=== PATIENT | male | born 1950 | race African-American/Black ===

== ENCOUNTER 2018-06-13 12:40 | Inpatient (IN) | payer MEDICARE, OTHER ==
--- NOTE | 2018-06-13 14:24 | ER Document Report ---
ED Medical Screen (RME) - General Chief Complaint: Breathing Difficulty Stated Complaint: DIFFICULTY BREATHING Time Seen by Provider: 06/13/18 14:17 - HPI Notes: 06/13/18 14:21 Patient is a 68-year-old male with a past medical history of congestive heart failure, legally blind, hypertension, and chronic kidney disease who presents to the ED complaining of 2 days of intermittent dyspnea that is worse with lying supine. Last episode of dyspnea was last night/early this morning. Denies any headache, fever, URI, sore throat, chest pain, palpitations, syncope , cough, wheeze, abdominal pain, nausea/vomiting/diarrhea, urinary retention, dysuria, hematuria, loss of control of bowel or bladder, numbness/tingling, saddle anesthesia, muscle paralysis/weakness, or rash. I have treated and performed a rapid initial assessment of this patient. A comprehensive ED assessment and evaluation of the patient, analysis of test results and completion of medical decision making process will be conducted by additional ED providers. PHYSICAL EXAMINATION: GENERAL: Well-appearing, well-nourished and in no acute distress. A&Ox4. Answers questions appropriately. LUNGS: Breath sounds clear to auscultation bilaterally and equal. No wheezes rales or rhonchi. HEART: Regular rate and rhythm without murmurs, rubs, gallops. Extremities: No cyanosis, clubbing, or edema b/l. - Related Data Allergies/Adverse Reactions: No Known Allergies Allergy (Verified 06/13/18 12:41) Past Medical History - Social History Chew tobacco use (# tins/day): No Frequency of alcohol use: Occasional Drug Abuse: Marijuana - Past Medical History Cardiac Medical History: Reports: Hx Congestive Heart Failure, Hx Hypercholesterolemia, Hx Hypertension Denies: Hx Atrial Fibrillation, Hx Coronary Artery Disease, Hx Heart Attack, Hx Peripheral Vascular Disease, Hx Pulmonary Embolism, Hx Heart Murmur Pulmonary Medical History: Reports: Hx Pneumonia Denies: Hx Asthma, Hx Bronchitis, Hx COPD, Hx Respiratory Failure, Hx Sleep Apnea, Hx Tuberculosis Renal/ Medical History: Denies: Hx Peritoneal Dialysis Malignancy Medical History: Denies Hx Lung Cancer GI Medical History: Reports: Hx Gastroesophageal Reflux Disease Musculoskeltal Medical History: Reports Hx Arthritis Past Surgical History: Reports: Hx Bowel Surgery - laparoscopic repair d/t perforation, Hx Cardiac Catheterization - 2010, Hx Open Heart Surgery - 1998 mitral valve repair, Hx Pacemaker. Denies: Hx Appendectomy, Hx Cholecystectomy , Hx Coronary Artery Bypass Graft, Hx Gastric Bypass Surgery, Hx Herniorrhaphy, Hx Tonsillectomy - Immunizations Hx Diphtheria, Pertussis, Tetanus Vaccination: No Physical Exam - Vital signs Vitals: Temp Pulse Resp BP Pulse Ox 97.9 F 83 16 152/86 H 99 06/13/18 12:58 06/13/18 12:58 06/13/18 12:58 06/13/18 12:58 06/13/18 12:58 Course - Vital Signs Vital signs: Temp Pulse Resp BP Pulse Ox 97.9 F 83 16 152/86 H 99 06/13/18 12:58 06/13/18 12:58 06/13/18 12:58 06/13/18 12:58 06/13/18 12:58 Doctor's Discharge - Discharge Referrals: PATRICIA RIOS MD [Primary Care Provider] - Follow up as needed
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
[2018-06-13 16:09] LABS: ABSOLUTE BASOPHILS # (AUTO) 0.1 10^3/uL (0.0-0.2); ABSOLUTE LYMPHOCYTES (AUTO) 1.7 10^3/uL (0.5-4.7); ABSOLUTE MONOCYTES (AUTO) 0.6 10^3/uL (0.1-1.4); ABSOLUTE NEUT (AUTO) 3.7 10^3/uL (1.7-8.2); EOSINOPHILS % (AUTO) 0.1 % (0-6); HEMATOCRIT 43.3 % (37.9-51.0); HEMOGLOBIN 14.1 g/dL (13.5-17.0); LYMPHOCYTES % (AUTO) 28.1 % (13-45); MEAN CORPUSCULAR HEMOGLOBIN 29.5 pg (27.0-33.4); MEAN CORPUSCULAR HGB CONC 32.6 g/dL (32.0-36.0); MEAN CORPUSCULAR VOLUME 91 fl (80-97); MONOCYTES % (AUTO) 9.6 % (3-13); PLATELET COUNT 171 10^3/uL (150-450); RED BLOOD COUNT 4.79 10^6/uL (4.35-5.55); RED CELL DISTRIBUTION WIDTH 15.1 % (11.5-14.0); SEGMENTED NEUTROPHILS % (AUTO) 61.2 % (42-78); TOTAL CELLS COUNTED % (AUTO) 100 %
--- NOTE | 2018-06-13 16:46 | ER Document Report ---
ED General - General Chief Complaint: Breathing Difficulty Stated Complaint: DIFFICULTY BREATHING Time Seen by Provider: 06/13/18 14:17 - HPI Notes: 68-year-old male with a history of congestive heart failure, mitral valve surgery, pacemaker/AICD, chronic kidney disease presents with increasing shortness of breath over the past 2 days. It is worse when he lays flat. No change with exertion. Denies any chest pain, cough, fever. He was taken off of Lasix and Coumadin about 1 month ago by his primary care doctor due to worsening kidney disease and "blood being too thin." He is not followed by cardiology. Denies history of coronary disease or stents. Sats 100%. Denies leg swelling. - Related Data Allergies/Adverse Reactions: No Known Allergies Allergy (Verified 06/13/18 14:23) Past Medical History - Social History Smoking Status: Current Every Day Smoker Chew tobacco use (# tins/day): No Frequency of alcohol use: Occasional Drug Abuse: Marijuana Family History: Reviewed & Not Pertinent Patient has suicidal ideation: No Patient has homicidal ideation: No - Past Medical History Cardiac Medical History: Reports: Hx Congestive Heart Failure, Hx Hypercholesterolemia, Hx Hypertension Denies: Hx Atrial Fibrillation, Hx Coronary Artery Disease, Hx Heart Attack, Hx Peripheral Vascular Disease, Hx Pulmonary Embolism, Hx Heart Murmur Pulmonary Medical History: Reports: Hx Pneumonia Denies: Hx Asthma, Hx Bronchitis, Hx COPD, Hx Respiratory Failure, Hx Sleep Apnea, Hx Tuberculosis Renal/ Medical History: Denies: Hx Peritoneal Dialysis Malignancy Medical History: Denies Hx Lung Cancer GI Medical History: Reports: Hx Gastroesophageal Reflux Disease Musculoskeletal Medical History: Reports Hx Arthritis Past Surgical History: Reports: Hx Bowel Surgery - laparoscopic repair d/t perforation, Hx Cardiac Catheterization - 2010, Hx Cardiac Surgery - valve replacement, Hx Open Heart Surgery - 1998 mitral valve repair, Hx Pacemaker. Denies: Hx Appendectomy, Hx Cholecystectomy, Hx Coronary Artery Bypass Graft, Hx Gastric Bypass Surgery, Hx Herniorrhaphy, Hx Tonsillectomy - Immunizations Hx Diphtheria, Pertussis, Tetanus Vaccination: No Hx Pneumococcal Vaccination: 09/11/11 Review of Systems - Review of Systems Notes: Constitutional: Negative for fever. HENT: Negative for sore throat. Eyes: Negative for visual changes. Cardiovascular: Negative for chest pain. Respiratory: Positive for shortness of breath. Gastrointestinal: Negative for abdominal pain, vomiting or diarrhea. Genitourinary: Negative for dysuria. Musculoskeletal: Negative for back pain. Skin: Negative for rash. Neurological: Negative for headaches, weakness or numbness. 10 point ROS negative except as marked above and in HPI. Physical Exam - Vital signs Vitals: Temp Pulse Resp BP Pulse Ox 97.9 F 83 16 152/86 H 99 06/13/18 12:58 06/13/18 12:58 06/13/18 12:58 06/13/18 12:58 06/13/18 12:58 - Notes Notes: PHYSICAL EXAMINATION: GENERAL: Well-appearing, well-nourished and in no acute distress. HEAD: Atraumatic, normocephalic. EYES: Blind both eyes, wearing glasses ENT: nares patent, oropharynx clear without exudates. Moist mucous membranes. NECK: Normal range of motion, supple without lymphadenopathy LUNGS: Breath sounds clear to auscultation bilaterally. No wheezes rales or rhonchi. Diminished breath sounds left lung base HEART: Regular rate and rhythm, no chest wall tenderness ABDOMEN: Soft, nontender, normoactive bowel sounds. No guarding, no rebound. No masses appreciated. EXTREMITIES: Normal range of motion, no pitting or edema. No cyanosis. NEUROLOGICAL: Cranial nerves grossly intact. Normal speech, normal gait. Normal sensory and motor exams. PSYCH: Normal mood, normal affect. SKIN: Warm, Dry, normal turgor, no rashes or lesions noted. Course - Re-evaluation Re-evalutation: 06/13/18 20:38 Patient required multiple attempts for blood as it continued to be hemolyzed. Eventually, troponin was minimally elevated and BNP was markedly elevated. He has not had a recent echocardiogram and is not followed by cardiology. Suggested admission for echocardiogram and diuresis. Patient agreed. Will discuss with hospitalist. - Vital Signs Vital signs: Temp Pulse Resp BP Pulse Ox 97.9 F 83 21 H 152/107 H 99 06/13/18 12:58 06/13/18 12:58 06/13/18 19:01 06/13/18 19:00 06/13/18 19:01 - Laboratory Result Diagrams: 06/13/18 15:58 06/13/18 17:00 Laboratory results interpreted by me: 06/13/18 06/13/18 06/13/18 15:58 17:00 18:50 RDW 15.1 H Chloride 111 H Carbon Dioxide 20 L BUN 23 H Direct Bilirubin 0.5 H AST 68 H NT-Pro-B Natriuret Pep 5070 H Total Protein 8.7 H Discharge - Discharge Clinical Impression: Elevated troponin CHF exacerbation Qualifiers: Heart failure type: unspecified Qualified Code(s): I50.9 - Heart failure, unspecified Condition: Stable Disposition: ADMITTED INPATIENT Admitting Provider: Hospitalist Unit Admitted: Telemetry Referrals: PATRICIA RIOS MD [Primary Care Provider] - Follow up as needed
[2018-06-13 18:10] LABS: ALANINE AMINOTRANSFERASE 50 U/L (21-72); ALKALINE PHOSPHATASE 99 U/L (38-126); ANION GAP 10 (5-19); ASPARTATE AMINO TRANSFERASE 68 U/L (17-59); BILIRUBIN,DIRECT 0.5 mg/dL (0.0-0.4); BLOOD UREA NITROGEN 23 mg/dL (7-20); CALCIUM 9.5 mg/dL (8.4-10.2); CARBON DIOXIDE 20 mmol/L (22-30); CHLORIDE 111 mmol/L (98-107); GLUCOSE 76 mg/dL (75-110); POTASSIUM 4.3 mmol/L (3.6-5.0); SODIUM 141.4 mmol/L (137-145); TOTAL PROTEIN 8.7 g/dL (6.3-8.2)
[2018-06-13] MEDS ORDERED: FUROSEMIDE 40 MG TABLET PO ONE (18:28)
--- NOTE | 2018-06-13 19:29 | EKG REPORT ---
SEVERITY:- ABNORMAL ECG - ATRIAL-SENSED VENTRICULAR-PACED RHYTHM : Confirmed by: Dez Ziegler MD 13-Jun-2018 19:28:13
[2018-06-13 20:32] LABS: TROPONIN I 0.05 ng/mL
[2018-06-13] MEDS ORDERED: NITROGLYCERIN 0.4 MG/TAB 25 TAB/BOTTLE SL ONE (23:00)
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
--- NOTE | 2018-06-14 07:39 | EKG REPORT ---
SEVERITY:- ABNORMAL ECG - VENTRICULAR-PACED COMPLEXES : Confirmed by: Dez Ziegler MD 14-Jun-2018 07:39:03
[2018-06-14] MEDS ORDERED: SACUBITRIL/VALSARTAN 24 MG/26 MG TABLET PO SCH (10:00)
[2018-06-14] MEDS ORDERED: FUROSEMIDE INJ/PF 40 MG/4 ML SDV IV SCH (10:00)
[2018-06-14] MEDS: POTASSIUM CHLORIDE 10 MEQ CAPSULE.ER PO SCH (11:10)
[2018-06-14] MEDS: FAMOTIDINE 20 MG TABLET PO SCH ×2 (11:10→21:38)
[2018-06-14] MEDS: ASPIRIN 81 MG TABLET, ENT COATED PO SCH (11:10)
[2018-06-14] MEDS: ENOXAPARIN SODIUM INJ 30 MG/0.3 ML DISP.SYRIN SUBCUT SCH (11:10)
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
--- NOTE | 2018-06-15 09:19 | PDOC PROGRESS REPORT ---
Subjective Progress Note for:: 06/15/18 Subjective:: no pain dyspnea Reason For Visit: ACUTE ON CHRONIC CONGESTIVE HEART FAILURE, Physical Exam Vital Signs: Temp Pulse Resp BP Pulse Ox 98.4 F 76 20 117/51 L 100 06/15/18 03:51 06/15/18 03:51 06/15/18 03:51 06/15/18 03:51 06/15/18 03:51 Intake & Output 06/14/18 06/15/18 06/16/18 07:59 07:59 07:59 Intake Total 650 Output Total 500 Balance -500 650 Weight 152 lb 1.903 oz 152 lb 8.958 oz General appearance: PRESENT: no acute distress Respiratory exam: PRESENT: clear to auscultation sidney Cardiovascular exam: ABSENT: diastolic murmur, irregular rhythm, systolic murmur GI/Abdominal exam: ABSENT: mass, organolmegaly, tenderness Extremities exam: ABSENT: pedal edema Neurological exam: PRESENT: oriented to situation Psychiatric exam: PRESENT: appropriate affect Results Laboratory Results: bmp pending Impressions: Chest X-Ray 06/13/18 14:21 IMPRESSION: Small left effusion. There is left basilar airspace disease either atelectasis or pneumonia. Assessment & Plan - Diagnosis (1) Acute on chronic systolic congestive heart failure Is this a current diagnosis for this admission?: Yes Plan: down 5#. Echo report pending. (2) Mixed hyperlipidemia Is this a current diagnosis for this admission?: Yes (3) Ventricular tachycardia Is this a current diagnosis for this admission?: Yes (4) Chronic atrial fibrillation Is this a current diagnosis for this admission?: Yes (5) Old myocardial infarction Is this a current diagnosis for this admission?: Yes - Inpatient Certification Medical Necessity: Failure to Improve With Outpatient Therapy, Significant Comorbidiites Make Outpatient Treatment Too Risky, Need Close Monitoring Due to Risk of Patient Decompensation, Need For Continuous Telemetry Monitoring, Risk of Complication if Not Cared For in Hospital, Risk of Diagnosis Which Will Require Inpatient Eval/Care/Monitoring
[2018-06-15 09:29] LABS: ANION GAP 9 (5-19); BLOOD UREA NITROGEN 20 mg/dL (7-20); CALCIUM 8.8 mg/dL (8.4-10.2); CARBON DIOXIDE 22 mmol/L (22-30); CHLORIDE 108 mmol/L (98-107); GLUCOSE 89 mg/dL (75-110); POTASSIUM 3.8 mmol/L (3.6-5.0); SODIUM 139.4 mmol/L (137-145)
--- NOTE | 2018-06-15 09:53 | XCELERA REPORT ---
[address] [address] Transthoracic Echocardiogram Report Name: TAMIA MENJIVAR Age: 68 yrs Gender: Male : 1950 Patient Status: Inpatient Patient Location: [address] [place] [address] Study Date: 06/14/2018 06:13 PM Height: 72 in Weight: 152 lb BSA: 1.9 m2 Procedure: A complete two-dimensional transthoracic echocardiogram was performed (2D, M-mode, spectral and color flow Doppler). The study was technically difficult with many images being suboptimal in quality. Reason For Study: chf Ordering Physician: PATRICIA RIOS Performed By: Mayra Carbajal Interpretation Summary The study was technically difficult with many images being suboptimal in quality. Left ventricular systolic function is severely reduced. The Ejection Fraction estimate is <20% Doppler measurements suggest pseudonormalized left ventricular relaxation, which is associated with grade II/IV or mild to moderate diastolic dysfunction There is mild concentric left ventricular hypertrophy. The left ventricle is mildly dilated. There is severe global hypokinesis of the left ventricle. Apical wall motion abnormality may reflect pacemaker activation Septal motion is consistent with conduction abnormality Borderline right ventricular enlargement. The right ventricular systolic function is moderately reduced. The left atrium is mildly dilated. The right atrium is normal in size There is a trace amount of mitral regurgitation There is mild mitral stenosis There is a trace to mild amount of aortic regurgitation There is no aortic valve stenosis There is a trace or physiologic amount of tricuspid regurgitation Tricuspid regurgitation jet envelope not well defined to measure RV systolic pressure accurately. The pulmonic valve is not well visualized. The aortic root is not well visualized but is probably normal size. The inferior vena cava was not well visualized Minimal pericardial effusion. MMode/2D Measurements & Calculations RVDd: 2.1 cm LVIDd: 6.0 cm FS: 8.2 % Ao root diam: 3.1 cm IVSd: 0.95 cm LVIDs: 5.5 cm EDV(Teich): 177.5 ml Ao root area: 7.7 cm2 LVPWd: 0.96 cm ESV(Teich): 145.9 ml LA dimension: 3.3 cm EF(Teich): 17.8 % Doppler Measurements & Calculations MV E max bob: MV P1/2t max bob: Ao V2 max: AI max bob: 96.7 cm/sec 101.0 cm/sec 134.4 cm/sec 319.7 cm/sec MV A max bob: MV P1/2t: 69.6 msec Ao max PG: AI max P.5 cm/sec MVA(P1/2t): 3.2 cm2 7.2 mmHg 41.5 mmHg MV E/A: 0.83 MV dec slope: AI dec slope: 197.6 cm/sec2 425.2 cm/sec2 AI P1/2t: MV dec time: 0.23 sec 473.8 msec LV V1 max PG: PA V2 max: PI end-d bob: TR max bob: 4.1 mmHg 61.4 cm/sec 52.7 cm/sec 243.2 cm/sec LV V1 max: PA max P.5 mmHg TR max P.8 cm/sec 23.7 mmHg AV P1/2t-pr_phl: MV P1/2t-pr_phl: 497.2 msec 69.6 msec Left Ventricle The left ventricle is mildly dilated. There is mild concentric left ventricular hypertrophy. Left ventricular systolic function is severely reduced. The Ejection Fraction estimate is <20%. Doppler measurements suggest pseudonormalized left ventricular relaxation, which is associated with grade II/IV or mild to moderate diastolic dysfunction. There is severe global hypokinesis of the left ventricle. Apical wall motion abnormality may reflect pacemaker activation. Septal motion is consistent with conduction abnormality. Right Ventricle Borderline right ventricular enlargement. The right ventricular systolic function is moderately reduced. Atria The right atrium is normal in size. The left atrium is mildly dilated. Interarterial septum not well visualized and not well dopplered. Cannot comment on ASD/PFO presence. Mitral Valve The mitral valve is not well visualized. Possibly Bioprosthetic. There is mild mitral stenosis. There is a trace amount of mitral regurgitation. Aortic Valve The aortic valve is not well visualized secondary to technical limitations. Possibly Bioprosthetic. There is no aortic valve stenosis. There is a trace to mild amount of aortic regurgitation. Tricuspid Valve The tricuspid valve is not well visualized, but is grossly normal. There is no tricuspid stenosis. There is a trace or physiologic amount of tricuspid regurgitation. Tricuspid regurgitation jet envelope not well defined to measure RV systolic pressure accurately. Pulmonic Valve The pulmonic valve is not well visualized. Great Vessels The aortic root is not well visualized but is probably normal size. The inferior vena cava was not well visualized. Effusions Minimal pericardial effusion. Incidental Findings Pacemaker wire noted. : PATRICIA RISO Shyamal
[2018-06-15] MEDS ORDERED: FUROSEMIDE INJ/PF 40 MG/4 ML SDV IV SCH (10:00)
[2018-06-15] MEDS: POTASSIUM CHLORIDE 10 MEQ CAPSULE.ER PO SCH (10:02)
[2018-06-15] MEDS: FAMOTIDINE 20 MG TABLET PO SCH ×2 (10:03→21:54)
[2018-06-15] MEDS: SPIRONOLACTONE 25 MG TABLET PO SCH (10:03)
[2018-06-15] MEDS: ASPIRIN 81 MG TABLET, ENT COATED PO SCH (10:03)
[2018-06-15] MEDS: ENOXAPARIN SODIUM INJ 30 MG/0.3 ML DISP.SYRIN SUBCUT SCH (10:04)
--- NOTE | 2018-06-15 17:09 | RADIOLOGY REPORT (SQ) ---
EXAM DESCRIPTION: CHEST 2 VIEWS COMPLETED DATE/TIME: 06/15/2018 4:57 pm REASON FOR STUDY: CHF COMPARISON: 06/13/2018 EXAM PARAMETERS: NUMBER OF VIEWS: two views TECHNIQUE: Digital Frontal and Lateral radiographic views of the chest acquired. RADIATION DOSE: NA LIMITATIONS: none FINDINGS: LUNGS AND PLEURA: Small left pleural effusion. Cannot exclude mild airspace disease in th e left base posteriorly. MEDIASTINUM AND HILAR STRUCTURES: No masses or contour abnormalities. HEART AND VASCULAR STRUCTURES: Heart size borderline. BONES: No acute findings. HARDWARE: Sternotomy wires. Heart valve. Pacemaker/ defibrillator. OTHER: No other significant finding. IMPRESSION: Small left pleural effusion. Cannot exclude limited left lower lobe pneumonia. TECHNICAL DOCUMENTATION: JOB ID: [id number] [employer]- All Rights Reserved Reading location - IP/workstation name: [email or web address]
[2018-06-15] MEDS: ISOSORB DINIT/HYDRALAZINE HCL 20-37.5 MG TABLET PO SCH (18:29)
--- NOTE | 2018-06-15 23:37 | PDOC PROGRESS REPORT ---
Subjective Progress Note for:: 06/15/18 Subjective:: Patient seems to be doing better with gradual improvement. Pt is denying any chest arm or neck discomfort. Patient denying any PND, orthopnea. Patient denied any sustained palpitations, dizziness, syncope, near syncope. Patient denying any fever chills. Patient denying any other significant discomfort. Patient is maintaining a sensed V paced rhythm. Review of systems: Rest review of systems negative. Medications: Medications have been reviewed. Reason For Visit: ACUTE ON CHRONIC CONGESTIVE HEART FAILURE, Physical Exam Vital Signs: Temp Pulse Resp BP Pulse Ox 98.2 F 80 14 94/58 L 99 06/15/18 19:28 06/15/18 19:28 06/15/18 19:28 06/15/18 19:28 06/15/18 19:28 Intake & Output 06/14/18 06/15/18 06/16/18 06:59 06:59 06:59 Intake Total 650 Output Total 500 Balance -500 650 Weight 69 kg 69.2 kg Exam: GENERAL: well-nourished and in no acute distress. Alert and oriented x3 HEAD: Atraumatic, normocephalic. EYES: Patient legally blind both eyes with atrophy being noted . ENT: TMs normal, nares patent, oropharynx clear without exudates. Moist mucous membranes. No oral ulcerations or bleeding gums noted NECK: supple without lymphadenopathy. Trachea is central. No cervical or axillary lymphadenopathy noted. Carotids are 2+, JVD WNL LUNGS: Respiration seems nonlabored, no significant accessory muscle action noted. Breath sounds clear to auscultation bilaterally and equal noted. No wheezes rales or rhonchi noted. No significant dullness noted on percussion. CHEST: Palpation of the chest wall shows no significant chest wall tenderness. Defibrillator noted left-sided chest. HEART: [place] [employer], No PSH, 1/6 KEYON aortic area, 1/6 minaya systolic murmur mitral area, no rubs, no gallops. ABDOMEN: Soft, no significant tenderness appreciated, normoactive bowel sounds. No guarding, no rebound. No rigidity noted . No masses appreciated. EXTREMITIES: Pedal pulses are 1-2+, no calf tenderness noted. No clubbing or cyanosis. negative pedal edema noted NEUROLOGICAL: Focused neurological exam showed no significant neurologic deficit. Normal speech, no focal weakness appreciated. PSYCH: Normal mood, normal affect. Judgment and insight within normal limits. SKIN: No significant ecchymosis, skin is noted to be warm. MUSCULOSKELETAL EXAM: No significant acute joint swelling noted. Results Laboratory Results: 06/15/18 06:01 06/15/18 06:01 Sodium 139.4 Potassium 3.8 Chloride 108 H Carbon Dioxide 22 Anion Gap 9 BUN 20 Creatinine 1.14 Est GFR ( Amer) > 60 Est GFR (Non-Af Amer) > 60 Glucose 89 Calcium 8.8 EKG Comments: Telemetry shows AV paced rhythm. Impressions: Chest X-Ray 06/15/18 00:00 IMPRESSION: Small left pleural effusion. Cannot exclude limited left lower lobe pneumonia. Assessment & Plan - Diagnosis (1) Acute on chronic systolic congestive heart failure Is this a current diagnosis for this admission?: Yes (2) Valvular heart disease Is this a current diagnosis for this admission?: Yes (3) Cardiac defibrillator in situ Is this a current diagnosis for this admission?: Yes (4) S/P AVR (aortic valve replacement) Is this a current diagnosis for this admission?: Yes - Notes Notes: Patient is clinically improved but is noted to have severe LV systolic dysfunction with EF less than 20%. LV septum appears slightly dyskinetic from paced beats. Chest x-ray shows patient just has a bioprosthetic mitral valve. Dr. Mackey confirmed angioedema with lisinopril therefore cannot use entresto therapy. Have added BiDil 1 tablet every 8 hours hopefully patient will be able to tolerate it. Have also added spironolactone. Will consider outpatient referral to local truck driver for placement of a third LV lead as an upgrade to his defibrillator pacemaker. This might improve his LVEF further. Acute on chronic systolic heart failure: BNP is noted to be elevated. Chest x- ray however did not show any significant CHF finding. 2D echo results were reviewed with the patient. Continue diuretic therapy. Valvular heart disease: 2D echo results were reviewed with the patient Cardiac defibrillator in situ: Telemetry strips an EKG shows normal functioning. Status post aVR: Seems to be functioning satisfactorily. Added hydralazine nitrate combination and spironolactone. Patient already on carvedilol. - Time Time with patient: Greater than 35 minutes - More than 50% of the time spent coordinating care, discussing management plans with involved caregivers. Management plans discussed with involved personnels. Medical decision making was of moderate to high complexity, patient's has multiple comorbidities. Medications reviewed and adjusted accordingly: Yes
[2018-06-16 07:17] LABS: ANION GAP 9 (5-19); BLOOD UREA NITROGEN 29 mg/dL (7-20); CALCIUM 8.7 mg/dL (8.4-10.2); CARBON DIOXIDE 21 mmol/L (22-30); CHLORIDE 108 mmol/L (98-107); GLUCOSE 86 mg/dL (75-110); POTASSIUM 3.8 mmol/L (3.6-5.0); SODIUM 137.9 mmol/L (137-145)
--- NOTE | 2018-06-16 07:18 | PDOC PROGRESS REPORT ---
Subjective Progress Note for:: 06/16/18 Subjective:: no dyspnea lying flat Reason For Visit: ACUTE ON CHRONIC CONGESTIVE HEART FAILURE, Physical Exam Vital Signs: Temp Pulse Resp BP Pulse Ox 97.9 F 73 14 102/63 100 06/16/18 03:20 06/16/18 03:20 06/16/18 03:20 06/16/18 03:20 06/16/18 03:20 Intake & Output 06/14/18 06/15/18 06/16/18 07:59 07:59 07:59 Intake Total 650 200 Output Total 500 Balance -500 650 200 Weight 152 lb 1.903 oz 152 lb 8.958 oz 152 lb 5.431 oz General appearance: PRESENT: no acute distress Respiratory exam: PRESENT: clear to auscultation sidney Cardiovascular exam: PRESENT: systolic murmur. ABSENT: diastolic murmur, irregular rhythm Murmur grade: 1 GI/Abdominal exam: ABSENT: mass, organolmegaly, tenderness Extremities exam: ABSENT: pedal edema Neurological exam: PRESENT: oriented to situation Psychiatric exam: PRESENT: appropriate affect Results Laboratory Results: 06/15/18 06:01 Sodium 139.4 Potassium 3.8 Chloride 108 H Carbon Dioxide 22 Anion Gap 9 BUN 20 Creatinine 1.14 Est GFR ( Amer) > 60 Est GFR (Non-Af Amer) > 60 Glucose 89 Calcium 8.8 Impressions: Chest X-Ray 06/15/18 00:00 IMPRESSION: Small left pleural effusion. Cannot exclude limited left lower lobe pneumonia. Assessment & Plan - Diagnosis (1) Acute on chronic systolic congestive heart failure Is this a current diagnosis for this admission?: Yes Plan: echo: La33 mr=trace mStenosis=mild ddf2 pw9 Lv55 hk=diffuse ej<20 ar= mild Rvp?. [id number] on bidil & spironolactone. Stopped iv [id number]. Consider resuming po tomorrow. Not on nonformulary carvedilol here now. Had angioedema on urmila in february. Consider low dose metoprolol. (2) Mixed hyperlipidemia Is this a current diagnosis for this admission?: Yes (3) Ventricular tachycardia Is this a current diagnosis for this admission?: Yes (4) Chronic atrial fibrillation Is this a current diagnosis for this admission?: Yes Plan: resume amiodarone (5) Old myocardial infarction Is this a current diagnosis for this admission?: Yes - Inpatient Certification Medical Necessity: Significant Comorbidiites Make Outpatient Treatment Too Risky , Need Close Monitoring Due to Risk of Patient Decompensation, Need For Continuous Telemetry Monitoring, Risk of Complication if Not Cared For in Hospital, Risk of Diagnosis Which Will Require Inpatient Eval/Care/Monitoring
[2018-06-16] MEDS: ALLOPURINOL 300 MG TABLET PO SCH (10:04)
[2018-06-16] MEDS: FAMOTIDINE 20 MG TABLET PO SCH ×2 (10:05→21:03)
[2018-06-16] MEDS: ISOSORB DINIT/HYDRALAZINE HCL 20-37.5 MG TABLET PO SCH ×3 (10:05→18:01)
[2018-06-16] MEDS: ASPIRIN 81 MG TABLET, ENT COATED PO SCH (10:05)
[2018-06-16] MEDS: POTASSIUM CHLORIDE 10 MEQ CAPSULE.ER PO SCH (10:05)
[2018-06-16] MEDS: AMIODARONE HCL 200 MG TABLET PO SCH (10:06)
[2018-06-16] MEDS: SPIRONOLACTONE 25 MG TABLET PO SCH (10:07)
[2018-06-16] MEDS ORDERED: ACETAMINOPHEN 325 MG TABLET PO PRN (11:41)
[2018-06-16 14:40] LABS: HEMOGLOBIN 14.1 g/dL (13.5-17.0); MEAN CORPUSCULAR HGB CONC 32.1 g/dL (32.0-36.0); MEAN CORPUSCULAR VOLUME 90 fl (80-97); PLATELET COUNT 148 10^3/uL (150-450); RED BLOOD COUNT 4.88 10^6/uL (4.35-5.55); RED CELL DISTRIBUTION WIDTH 14.8 % (11.5-14.0); WHITE BLOOD COUNT 4.8 10^3/uL (4.0-10.5)
[2018-06-16] MEDS: ENOXAPARIN SODIUM INJ 30 MG/0.3 ML DISP.SYRIN SUBCUT SCH (15:49)
--- NOTE | 2018-06-16 23:13 | PDOC PROGRESS REPORT ---
Subjective Progress Note for:: 06/16/18 Subjective:: Patient was started on BiDil therapy. He is being observed to see response. Patient seems to be doing better with gradual improvement. Pt is denying any chest arm or neck discomfort. Patient denying any PND, orthopnea. Patient denied any sustained palpitations, dizziness, syncope, near syncope. Patient denying any fever chills. Patient denying any other significant discomfort. Patient is maintaining a sensed V paced rhythm. Review of systems: Rest review of systems negative. Medications: Medications have been reviewed. Reason For Visit: ACUTE ON CHRONIC CONGESTIVE HEART FAILURE, Physical Exam Vital Signs: Temp Pulse Resp BP Pulse Ox 98.0 F 87 14 103/62 100 06/16/18 19:26 06/16/18 19:26 06/16/18 19:26 06/16/18 20:20 06/16/18 19:26 Intake & Output 06/15/18 06/16/18 06/17/18 06:59 06:59 06:59 Intake Total 650 200 Balance 650 200 Weight 69.2 kg 69.1 kg Exam: GENERAL: well-nourished and in no acute distress. Alert and oriented x3 HEAD: Atraumatic, normocephalic. EYES: Patient has bilateral blindness. Bilateral eyes seems somewhat atrophic. ENT: TMs normal, nares patent, oropharynx clear without exudates. Moist mucous membranes. No oral ulcerations or bleeding gums noted NECK: supple without lymphadenopathy. Trachea is central. No cervical or axillary lymphadenopathy noted. Carotids are 2+, JVD WNL LUNGS: Respiration seems nonlabored, no significant accessory muscle action noted. Breath sounds clear to auscultation bilaterally and equal noted. No wheezes rales or rhonchi noted. No significant dullness noted on percussion. CHEST: Palpation of the chest wall shows no significant chest wall tenderness. Defibrillator noted left-sided chest. HEART: [place] [employer], No PSH, 1/6 KEYON aortic area, 1/6 minaya systolic murmur mitral area, no rubs, no gallops. ABDOMEN: Soft, no significant tenderness appreciated, normoactive bowel sounds. No guarding, no rebound. No rigidity noted . No masses appreciated. EXTREMITIES: Pedal pulses are 1-2+, no calf tenderness noted. No clubbing or cyanosis. negative pedal edema noted NEUROLOGICAL: Focused neurological exam showed no significant neurologic deficit. Normal speech, no focal weakness appreciated. PSYCH: Normal mood, normal affect. Judgment and insight within normal limits. SKIN: No significant ecchymosis, skin is noted to be warm. MUSCULOSKELETAL EXAM: No significant acute joint swelling noted. Results Laboratory Results: 06/16/18 13:53 06/16/18 06:45 06/16/18 06/16/18 06:45 13:53 WBC 4.8 RBC 4.88 Hgb 14.1 Hct 44.0 MCV 90 MCH 29.0 MCHC 32.1 RDW 14.8 H Plt Count 148 L Sodium 137.9 Potassium 3.8 Chloride 108 H Carbon Dioxide 21 L Anion Gap 9 BUN 29 H Creatinine 1.34 H Est GFR ( Amer) > 60 Est GFR (Non-Af Amer) 53 L Glucose 86 Calcium 8.7 EKG Comments: Telemetry shows AV paced rhythm Impressions: Chest X-Ray 06/15/18 00:00 IMPRESSION: Small left pleural effusion. Cannot exclude limited left lower lobe pneumonia. Assessment & Plan - Diagnosis (1) Acute on chronic systolic congestive heart failure Is this a current diagnosis for this admission?: Yes (2) Valvular heart disease Is this a current diagnosis for this admission?: Yes (3) Cardiac defibrillator in situ Is this a current diagnosis for this admission?: Yes (4) S/P AVR (aortic valve replacement) Is this a current diagnosis for this admission?: Yes (5) Cardiomyopathy Qualifiers: Cardiomyopathy type: unspecified Qualified Code(s): I42.9 - Cardiomyopathy , unspecified Is this a current diagnosis for this admission?: Yes - Notes Notes: Acute on chronic systolic heart failure: BNP is noted to be elevated. Chest x- ray however did not show any significant CHF finding. 2D echo results were reviewed with the patient. Valvular heart disease: Aortic valve is bioprosthetic and has trace to mild leak in it. Cardiac defibrillator in situ: Telemetry strips an EKG shows normal functioning. Status post aVR: 2D echo results were reviewed. Seems to be tolerating hydralazine nitrate combination and spironolactone. Patient already on carvedilol. Carvedilol at maximum dose. Will consider adding digoxin. - Time Time with patient: Greater than 35 minutes - More than 50% of the time spent coordinating care, discussing management plans with involved caregivers. Management plans discussed with involved personnels. Medical decision making was of moderate to high complexity, patient's has multiple comorbidities. Medications reviewed and adjusted accordingly: Yes
[2018-06-17 07:31] LABS: ANION GAP 13 (5-19); BLOOD UREA NITROGEN 30 mg/dL (7-20); CALCIUM 9.1 mg/dL (8.4-10.2); CARBON DIOXIDE 20 mmol/L (22-30); CHLORIDE 105 mmol/L (98-107); GLUCOSE 92 mg/dL (75-110); SODIUM 137.8 mmol/L (137-145)
--- NOTE | 2018-06-17 09:11 | PDOC DISCHARGE SUMMARY ---
General - Admit/Disc Date/PCP Admission Date/Primary Care Provider: 06/13/18 20:53 PATRICIA RIOS MD Discharge Date: 06/17/18 - Discharge Diagnosis (1) Acute on chronic systolic congestive heart failure Is this a current diagnosis for this admission?: Yes (2) Mixed hyperlipidemia Is this a current diagnosis for this admission?: Yes (3) Ventricular tachycardia Is this a current diagnosis for this admission?: Yes (4) Chronic atrial fibrillation Is this a current diagnosis for this admission?: Yes (5) Old myocardial infarction Is this a current diagnosis for this admission?: Yes - Additional Information Resuscitation Status: Full Code Discharge Diet: Cardiac Discharge Activity: Activity As Tolerated, Balance Activity w/Rest, Weigh Daily Prescriptions: Allopurinol [Zyloprim 300 mg Tablet] 300 mg PO DAILY #90 tablet Amiodarone HCl [Cordarone 200 mg Tablet] 200 mg PO DAILY #90 tablet Aspirin [Ecotrin 81 mg EC Tablet] 81 mg PO DAILY #90 tabec Furosemide [Lasix 40 mg Tablet] 40 mg PO DAILY 90 Days tablet Isosorb Dinit/Hydralazine HCl [Bidil 20-37.5 mg Tablet] 1 tab PO TID #90 tablet Potassium Chloride [Klor-Con 10 Meq Capsule ER] 20 meq PO DAILY #90 capsule.er Spironolactone [Aldactone 25 mg Tablet] 25 mg PO DAILY #90 tablet Home Medications: Allopurinol [Zyloprim 300 mg Tablet] 300 mg PO DAILY #90 tablet 06/17/18 Amiodarone HCl [Cordarone 200 mg Tablet] 200 mg PO DAILY #90 tablet 06/17/18 Aspirin [Ecotrin 81 mg EC Tablet] 81 mg PO DAILY #90 tabec 06/17/18 Furosemide [Lasix 40 mg Tablet] 40 mg PO DAILY 90 Days tablet 06/17/18 Isosorb Dinit/Hydralazine HCl [Bidil 20-37.5 mg Tablet] 1 tab PO TID #90 tablet 06/17/18 Potassium Chloride [Klor-Con 10 Meq Capsule ER] 20 meq PO DAILY #90 capsule.er 06/17/18 Spironolactone [Aldactone 25 mg Tablet] 25 mg PO DAILY #90 tablet 06/17/18 History of Present Illness History of Present Illness: TAMIA MENJIVAR is a 68 year old male with blindness systolic failure afib nsvt ckd angioedema and 1d increased acosta & pnd. In february I stopped warfarin because of wild swings in inr. I stopped furosemide 40bid when creatinine was 2.1 and bun was 52. Hospital Course Hospital Course: echo showed ej < 20% mild mitral stenosis & aortic regurgitation. Because of angioedema on urmila, he was started on bidil as well as furosemide 40 spironolactone 25 KCl. Because of low bp, carvedilol was not resumed. Dr Bueno suggested a possible 3rd lead. PND is gone. Physical Exam Vital Signs: Temp Pulse Resp BP Pulse Ox 98.1 F 81 14 131/75 H 100 06/17/18 07:25 06/17/18 07:25 06/17/18 07:25 06/17/18 07:25 06/17/18 07:25 Intake & Output 06/16/18 06/17/18 06/18/18 07:59 07:59 07:59 Intake Total 200 816 Balance 200 816 Weight 152 lb 5.431 oz 152 lb 5.431 oz General appearance: PRESENT: no acute distress Respiratory exam: PRESENT: clear to auscultation sidney Cardiovascular exam: ABSENT: diastolic murmur, irregular rhythm, systolic murmur Murmur grade: 1 GI/Abdominal exam: ABSENT: mass, organolmegaly, tenderness Extremities exam: ABSENT: pedal edema Neurological exam: PRESENT: oriented to situation Psychiatric exam: PRESENT: appropriate affect Results Laboratory Results: 06/16/18 13:53 06/17/18 06:48 Labs- Last Values WBC 4.8 10^3/uL (4.0-10.5) 06/16/18 13:53 RBC 4.88 10^6/uL (4.35-5.55) 06/16/18 13:53 Hgb 14.1 g/dL (13.5-17.0) 06/16/18 13:53 Hct 44.0 % (37.9-51.0) 06/16/18 13:53 MCV 90 fl (80-97) 06/16/18 13:53 MCH 29.0 pg (27.0-33.4) 06/16/18 13:53 MCHC 32.1 g/dL (32.0-36.0) 06/16/18 13:53 RDW 14.8 % (11.5-14.0) H 06/16/18 13:53 Plt Count 148 10^3/uL (150-450) L 06/16/18 13:53 Seg Neutrophils % 61.2 % (42-78) 06/13/18 15:58 Lymphocytes % 28.1 % (13-45) 06/13/18 15:58 Monocytes % 9.6 % (3-13) 06/13/18 15:58 Eosinophils % 0.1 % (0-6) 06/13/18 15:58 Basophils % 1.0 % (0-2) 06/13/18 15:58 Absolute Neutrophils 3.7 10^3/uL (1.7-8.2) 06/13/18 15:58 Absolute Lymphocytes 1.7 10^3/uL (0.5-4.7) 06/13/18 15:58 Absolute Monocytes 0.6 10^3/uL (0.1-1.4) 06/13/18 15:58 Absolute Eosinophils 0.0 10^3/uL (0.0-0.6) 06/13/18 15:58 Absolute Basophils 0.1 10^3/uL (0.0-0.2) 06/13/18 15:58 Sodium 137.8 mmol/L (137-145) 06/17/18 06:48 Potassium 4.0 mmol/L (3.6-5.0) 06/17/18 06:48 Chloride 105 mmol/L (98-107) 06/17/18 06:48 Carbon Dioxide 20 mmol/L (22-30) L 06/17/18 06:48 Anion Gap 13 (5-19) 06/17/18 06:48 BUN 30 mg/dL (7-20) H 06/17/18 06:48 Creatinine 1.39 mg/dL (0.52-1.25) H 06/17/18 06:48 Est GFR ( Amer) > 60 (>60) 06/17/18 06:48 Est GFR (Non-Af Amer) 51 (>60) L 06/17/18 06:48 Glucose 92 mg/dL (75-110) 06/17/18 06:48 Calcium 9.1 mg/dL (8.4-10.2) 06/17/18 06:48 Total Bilirubin 1.0 mg/dL (0.2-1.3) 06/13/18 17:00 Direct Bilirubin 0.5 mg/dL (0.0-0.4) H 06/13/18 17:00 Neonat Total Bilirubin Not Reportable 06/13/18 17:00 Neonat Direct Bilirubin Not Reportable 06/13/18 17:00 Neonat Indirect Bili Not Reportable 06/13/18 17:00 AST 68 U/L (17-59) H 06/13/18 17:00 ALT 50 U/L (21-72) 06/13/18 17:00 Alkaline Phosphatase 99 U/L (38-126) 06/13/18 17:00 Troponin I 0.050 ng/mL 06/13/18 18:50 NT-Pro-B Natriuret Pep 5070 pg/mL (5-900) H 06/13/18 18:50 Total Protein 8.7 g/dL (6.3-8.2) H 06/13/18 17:00 Albumin 4.0 g/dL (3.5-5.0) 06/13/18 17:00 Impressions: Chest X-Ray 06/15/18 00:00 IMPRESSION: Small left pleural effusion. Cannot exclude limited left lower lobe pneumonia. Qualifiers - * PATIENT BEING DISCHARGED WITH ANY OF THE FOLLOWING DIAGNOSIS: Heart Failure HF Pt being discharged on ACEI for LVEF less than 40%?: No Reason(s) for not prescribing ACEI:: Medical Contraindication HF Pt being discharged on ARBS for LVEF less than 40%?: No Reason(s) for not prescribing ARBS:: Medical Contraindication HF Pt with Afib discharged with Warfarin?: No Reason(s) for not prescribing Warfarin:: Not indicated HF Pt discharged on evidence-based Beta Melissa:: No Reason(s) for not prescribing evidence-based Beta Melissa:: Medical Contraindication Plan Discharge Plan: 5d ov
[2018-06-17 09:18] VITALS: BP 127/71
[2018-06-17] MEDS: ENOXAPARIN SODIUM INJ 30 MG/0.3 ML DISP.SYRIN SUBCUT SCH (09:30)
[2018-06-17] MEDS: SPIRONOLACTONE 25 MG TABLET PO SCH (09:31)
[2018-06-17] MEDS: ASPIRIN 81 MG TABLET, ENT COATED PO SCH (09:31)
[2018-06-17] MEDS: POTASSIUM CHLORIDE 10 MEQ CAPSULE.ER PO SCH (09:31)
[2018-06-17] MEDS: FAMOTIDINE 20 MG TABLET PO SCH (09:31)
[2018-06-17] MEDS: ALLOPURINOL 300 MG TABLET PO SCH (09:32)
[2018-06-17] MEDS: AMIODARONE HCL 200 MG TABLET PO SCH (09:32)
[2018-06-17] MEDS: ISOSORB DINIT/HYDRALAZINE HCL 20-37.5 MG TABLET PO SCH (09:32)
--- NOTE | 2018-06-17 13:04 | PDOC PROGRESS REPORT ---
Subjective Progress Note for:: 06/17/18 Subjective:: Patient was started on BiDil and spironolactone therapy on the sixth. He is being observed to see response. So far seems to be tolerating this well. Patient seems to be doing better with gradual improvement. Pt is denying any chest arm or neck discomfort. Patient denying any PND, orthopnea. Patient denied any sustained palpitations, dizziness, syncope, near syncope. Patient denying any fever chills. Patient denying any other significant discomfort. Patient is maintaining a sensed V paced rhythm. Review of systems: Rest review of systems negative. Medications: Medications have been reviewed. Reason For Visit: ACUTE ON CHRONIC CONGESTIVE HEART FAILURE, Physical Exam Vital Signs: Temp Pulse Resp BP Pulse Ox 98.1 F 81 14 127/71 H 100 06/17/18 09:14 06/17/18 09:14 06/17/18 09:14 06/17/18 09:14 06/17/18 09:14 Intake & Output 06/16/18 06/17/18 06/18/18 06:59 06:59 06:59 Intake Total 200 816 Balance 200 816 Weight 69.1 kg 69.1 kg Exam: GENERAL: well-nourished and in no acute distress. Alert and oriented x3 HEAD: Atraumatic, normocephalic. EYES: Bilateral blindness with atrophic eyes. ENT: TMs normal, nares patent, oropharynx clear without exudates. Moist mucous membranes. No oral ulcerations or bleeding gums noted NECK: supple without lymphadenopathy. Trachea is central. No cervical or axillary lymphadenopathy noted. Carotids are 2+, JVD WNL LUNGS: Respiration seems nonlabored, no significant accessory muscle action noted. Breath sounds clear to auscultation bilaterally and equal noted. No wheezes rales or rhonchi noted. No significant dullness noted on percussion. CHEST: Palpation of the chest wall shows no significant chest wall tenderness. Defibrillator noted left-sided chest HEART: [place] [employer], No PSH, 1/6 KEYON aortic area, 1/6 minaya systolic murmur mitral area, no rubs, no gallops. ABDOMEN: Soft, no significant tenderness appreciated, normoactive bowel sounds. No guarding, no rebound. No rigidity noted . No masses appreciated. EXTREMITIES: Pedal pulses are 1-2+, no calf tenderness noted. No clubbing or cyanosis. negative pedal edema noted NEUROLOGICAL: Focused neurological exam showed no significant neurologic deficit. Normal speech, no focal weakness appreciated. PSYCH: Normal mood, normal affect. Judgment and insight within normal limits. SKIN: No significant ecchymosis, skin is noted to be warm. MUSCULOSKELETAL EXAM: No significant acute joint swelling noted. Results Laboratory Results: 06/16/18 13:53 06/17/18 06:48 06/16/18 06/17/18 13:53 06:48 WBC 4.8 RBC 4.88 Hgb 14.1 Hct 44.0 MCV 90 MCH 29.0 MCHC 32.1 RDW 14.8 H Plt Count 148 L Sodium 137.8 Potassium 4.0 Chloride 105 Carbon Dioxide 20 L Anion Gap 13 BUN 30 H Creatinine 1.39 H Est GFR ( Amer) > 60 Est GFR (Non-Af Amer) 51 L Glucose 92 Calcium 9.1 EKG Comments: Telemetry showed AV paced rhythm Impressions: Chest X-Ray 06/15/18 00:00 IMPRESSION: Small left pleural effusion. Cannot exclude limited left lower lobe pneumonia. Assessment & Plan - Diagnosis (1) Acute on chronic systolic congestive heart failure Is this a current diagnosis for this admission?: Yes (2) Valvular heart disease Is this a current diagnosis for this admission?: Yes (3) Cardiac defibrillator in situ Is this a current diagnosis for this admission?: Yes (4) S/P AVR (aortic valve replacement) Is this a current diagnosis for this admission?: Yes (5) Cardiomyopathy Qualifiers: Cardiomyopathy type: unspecified Qualified Code(s): I42.9 - Cardiomyopathy , unspecified Is this a current diagnosis for this admission?: Yes - Notes Notes: Patient being discharged today. Medication review shows that patient was actually not on carvedilol and this got somehow missed. Will try to reintroduce it as an outpatient and also check digoxin if patient follows up with me. Patient will benefit from addition of a LV lead for which I will be happy to make a referral to appropriate pomology teacher. Acute on chronic systolic heart failure: BNP is noted to be elevated. 2D echo results were reviewed with the patient. Valvular heart disease: Aortic valve is bioprosthetic and has trace to mild leak in it. Cardiac defibrillator in situ: Telemetry strips an EKG shows normal functioning. Status post aVR: 2D echo results were reviewed. Seems to be tolerating hydralazine nitrate combination and spironolactone. - Time Time with patient: 15-25 minutes - More than 50% of the time spent coordinating care, discussing management plans with involved caregivers. Management plans discussed with involved personnels. Medical decision making was of moderate to high complexity, patient's has multiple comorbidities. Medications reviewed and adjusted accordingly: Yes
== END 2018-06-17 10:09 | disposition home or self-care (01) | DRG 292 ==
LOC: ER 12:40 → EH 20:53 → 4S 06-14 02:55
PROVIDERS: ADMIT Family Medicine; ATTEND Family Medicine
DX: I50.23 Acute on chronic systolic (congestive) heart failure (principal); I47.2 Ventricular tachycardia; I13.0 Hypertensive heart and chronic kidney disease with heart failure and stage 1 through stage 4 chronic kidney disease, or unspecified chronic kidney disease; I42.9 Cardiomyopathy, unspecified; N18.3 Chronic kidney disease, stage 3 (moderate); I48.2 Chronic atrial fibrillation; H54.7 Unspecified visual loss; K21.9 Gastro-esophageal reflux disease without esophagitis; E78.2 Mixed hyperlipidemia; M19.90 Unspecified osteoarthritis, unspecified site; Z79.82 Long term (current) use of aspirin; Z79.899 Other long term (current) drug therapy; Z95.810 Presence of automatic (implantable) cardiac defibrillator; I25.2 Old myocardial infarction; F17.200 Nicotine dependence, unspecified, uncomplicated; Z88.8 Allergy status to other drugs, medicaments and biological substances; Z95.2 Presence of prosthetic heart valve
CPT/HCPCS: 36415; 71045; 71046; 80048; 80053; 83880; 84484; 85025; 85027; 93005; 93010; 93306; 99285; J1650; J1940; J3490